=== PATIENT | female | born 1980 | race Caucasian/White ===

== ENCOUNTER 2020-02-05 16:22 | Outpatient (CLI) | payer MEDICAID, SELFPAY | END 2020-02-05 20:31 | disposition home or self-care (01) | LOC: MLB 16:22 | PROVIDERS: ATTEND Obstetrics & Gynecology | DX: Z11.59 Encounter for screening for other viral diseases (principal) | CPT/HCPCS: U0003-CS ==

== ENCOUNTER 2020-02-19 07:21 | Inpatient (IN) | payer MEDICAID, SELFPAY ==
[~2020-02-19] VITALS: Ht 137.2 cm; Wt 63.5 kg
[2020-02-19] MEDS ORDERED: LACTATED RINGERS 1,000 ML IV SCH (07:50)
[2020-02-19] MEDS ORDERED: CARBOPROST 250 MCG/ML AMP IM PRN (07:50)
[2020-02-19] MEDS ORDERED: METHYLERGONOVINE 0.2 MG/ML AMP IM PRN ×2 (07:50→20:05)
--- NOTE | 2020-02-19 07:55 | NUR ---
PATIENT HAS BEEN SCREENED AND CATEGORIZED LOW NUTRITION RISK. PATIENT WILL BE SEEN WITHIN 7 DAYS OF ADMISSION. 02/25/[address]
[2020-02-19] MEDS ORDERED: MISOPROSTOL 25 MCG TAB VG SCH (08:00)
[2020-02-19] MEDS ORDERED: PRETAB PO (08:08)
[2020-02-19 08:36] LABS: BASOPHILS % (AUTO) 0.4 % (0.0-2.0); EOSINOPHILS # (AUTO) 0.2 K/uL (0-0.4); EOSINOPHILS % (AUTO) 1.6 % (0.0-4.0); HEMOGLOBIN 12.1 g/dL (12.0-16.0); LYMPHOCYTES # (AUTO) 2.3 K/uL (2.5-16.5); MEAN CORPUSCULAR HEMOGLOBIN 33 pg (27-31); MEAN CORPUSCULAR HGB CONC 34 g/dL (33-37); MEAN CORPUSCULAR VOLUME 97.4 fL (80-94); MONOCYTES # (AUTO) 0.7 K/uL (0.8-1.0); MONOCYTES % (AUTO) 7.3 % (1.7-9.3); NEUTROPHILS # (AUTO) 6.8 K/uL (1.8-7.7); NEUTROPHILS % (AUTO) 67.7 % (42.2-75.2); PLATELET COUNT (AUTO) 191 K/uL (140-450); RED CELL DISTRIBUTION WIDTH 13.4 % (11.6-13.7)
[2020-02-19] MEDS ORDERED: MISOPROSTOL 25 MCG TAB ONE (09:23)
[2020-02-19 09:42] VITALS: BP 109/74
[2020-02-19 10:20] LABS: ALBUMIN 2.8 g/dL (3.4-5.0); ANION GAP 23.8 (8-16); CARBON DIOXIDE 16.2 mmol/L (21-32); CREATININE 0.6 mg/dL (0.6-1.3); TOTAL BILIRUBIN 0.4 mg/dL (0.0-1.0)
[2020-02-19 10:57] LABS: APPEARANCE,URINE CLEAR (CLEAR); BILIRUBIN,URINE NEGATIVE (NEGATIVE); BLOOD, URINE 1+ (NEGATIVE); COLOR,URINE YELLOW (YELLOW); LEUKOCYTE ESTERASE ,URINE 2+ (NEGATIVE); NITRITE, URINE NEGATIVE (NEGATIVE); UGLUCOSE NEGATIVE (NEGATIVE)
[2020-02-19] MEDS ORDERED: ROPIVACAINE 0.2%/NS PREMIX 200 ML EPI ONE (12:34)
[2020-02-19] MEDS ORDERED: OXYTOCIN 20 UNITS/LR PREMIX 1,000 ML IV ONE (13:45)
[2020-02-19] MEDS ORDERED: OXYTOCIN 20 UNITS in LACTATED RINGERS 1,000 ML IV SCH (13:50)
[2020-02-19] MEDS ORDERED: oxyCODONE/APAP 5/325 MG 1 TAB TAB PO PRN (20:05)
[2020-02-19] MEDS ORDERED: SODIUM PHOSPHATE 118 ML ENEM RC PRN (20:05)
[2020-02-19] MEDS ORDERED: BENZOCAINE/MENTHOL 20%-0.5% 60 GM CAN TP PRN (20:05)
[2020-02-19] MEDS ORDERED: TEMAZEPAM 15 MG CAP PO PRN (20:05)
[2020-02-19] MEDS ORDERED: OXYTOCIN 10 UNITS/ML VIAL IM PRN (20:05)
[2020-02-19] MEDS ORDERED: METHYLERGONOVINE 0.2 MG TAB PO PRN (20:05)
[2020-02-19] MEDS ORDERED: DOCUSATE SOD/SENNA 50/8.6 MG 1 TAB PO SCH (21:00)
[2020-02-19] MEDS: IBUPROFEN 800 MG TAB PO PRN (22:49)
[2020-02-20] MEDS: IBUPROFEN 800 MG TAB PO PRN ×2 (05:26→14:18)
[2020-02-20 05:38] LABS: HEMATOCRIT 30.7 % (36-48); HEMOGLOBIN 10.3 g/dL (12.0-16.0)
[2020-02-20] MEDS: oxyCODONE/APAP 5/325 MG 1 TAB TAB PO PRN (10:50)
[2020-02-21] MEDS: IBUPROFEN 800 MG TAB PO PRN (06:13)
[2020-02-21] MEDS: oxyCODONE/APAP 5/325 MG 1 TAB TAB PO PRN (11:37)
== END 2020-02-21 17:05 | disposition home or self-care (01) | DRG 560 ==
LOC: MFCC 07:21
PROVIDERS: ADMIT Obstetrics & Gynecology; ATTEND Obstetrics & Gynecology
PROC: 10D07Z6 Extraction of Products of Conception, Vacuum, Via Natural or Artificial Opening (ICD-10-PCS; principal; 2020-02-19)
PROC: 3E0234Z Introduction of Serum, Toxoid and Vaccine into Muscle, Percutaneous Approach (ICD-10-PCS; 2020-02-19)
PROC: 10907ZC Drainage of Amniotic Fluid, Therapeutic from Products of Conception, Via Natural or Artificial Opening (ICD-10-PCS; 2020-02-19)
PROC: 0HQ9XZZ Repair Perineum Skin, External Approach (ICD-10-PCS; 2020-02-19)
PROC: 3E0P7VZ Introduction of Hormone into Female Reproductive, Via Natural or Artificial Opening (ICD-10-PCS; 2020-02-19)
PROC: 3E0R3BZ Introduction of Anesthetic Agent into Spinal Canal, Percutaneous Approach (ICD-10-PCS; 2020-02-19)
PROC: 00HU33Z Insertion of Infusion Device into Spinal Canal, Percutaneous Approach (ICD-10-PCS; 2020-02-19)
PROC: 3E0234Z Introduction of Serum, Toxoid and Vaccine into Muscle, Percutaneous Approach (ICD-10-PCS; 2020-02-19)
DX: O48.0 Post-term pregnancy (principal); O70.0 First degree perineal laceration during delivery; O76 Abnormality in fetal heart rate and rhythm complicating labor and delivery; Z3A.40 40 weeks gestation of pregnancy; Z37.0 Single live birth; Z23 Encounter for immunization
CPT/HCPCS: 36415; 51702; 80053; 81001; 85018; 85025; 86592; 86886; 86900; 86901; 87086; 90715; J2590; J2795; J7120